=== PATIENT | female | born 2005 | race Caucasian/White ===

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

== ENCOUNTER → 2023-10-04 | Outpatient (CLI) | payer MEDICAID, SELFPAY ==
--- NOTE | 2023-10-04 10:34 | RAD_ITS ---
STUDY: X-RAY - RIGHT HAND, ATTENTION THIRD FINGER REASON FOR EXAM: Female, 18 years old. Right middle finger pain TECHNIQUE: 3 view(s) of the finger were obtained. COMPARISON: None. FINDINGS: Normal metacarpal head. Normal metacarpophalangeal joint. Normal proximal phalanx. Normal middle phalanx. Normal distal phalanx. Normal proximal interphalangeal joint. Normal distal interphalangeal joint. RAD/Finger(s) Min 2 Views IMPRESSION: Normal x-ray examination of the finger. Electronically Signed: Nj Nguyen MD at 11:30 EST ,
== END | disposition home or self-care (01) ==
PROVIDERS: PCP Nurse Practitioner Family; Referring Provider Physician Assistant Surgical; Visit Provider Physician Assistant Surgical
DX: S60.031A Contusion of right middle finger without damage to nail, initial encounter (principal)
CPT/HCPCS: 73140

== ENCOUNTER 2023-12-07 12:31 | Emergency (ER) | payer MEDICAID, SELFPAY ==
[2023-12-07 12:31] VITALS: BP 148/94; PULSE 72; RESP 17; TEMP 36.1; O2SAT 96; BMI 46.9
--- NOTE | 2023-12-07 12:56 | ED.RN ---
denies changes in vision or hearing, headache with sensitivity to light.
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
[2023-12-07 13:47] VITALS: BP 136/104; PULSE 59; RESP 18; TEMP 36.8; O2SAT 96
== END 2023-12-07 13:47 | disposition home or self-care (01) ==
PROVIDERS: Emergency Provider Emergency Medicine; Visit Provider Emergency Medicine
DX: S06.0X1A Concussion with loss of consciousness of 30 minutes or less, initial encounter (principal); W22.03XA Walked into furniture, initial encounter; Y93.89 Activity, other specified
CPT/HCPCS: 99282

== ENCOUNTER → 2024-12-01 | Outpatient (CLI) | payer MEDICAID, SELFPAY ==
--- NOTE | 2024-12-01 12:55 | RAD_ITS ---
PROCEDURE: LUMBAR SPINE 2 OR 3 VIEWS 12/01/2024 REASON FOR EXAM: PAIN TECHNIQUE: AP and lateral views of the lumbar spine were obtained COMPARISON: None. FINDINGS: Fracture/dislocation: None visible. Vertebral body heights: Preserved. Alignment: Unremarkable Disc spaces: Preserved. Facets: Grossly unremarkable. Soft tissues: Unremarkable. Foreign bodies: None visible. Bone mineralization: Grossly unremarkable. Other: None. RAD/Lumbar Spine 2 or 3 Views IMPRESSION: No visible acute displaced fracture or other acute abnormality. If there is pe rsistent concern, consider CT. Reading Location: [id number]
--- NOTE | 2024-12-01 12:55 | RAD_ITS ---
PROCEDURE: HIP, UNI W/ PELVIS 2-3 VIEWS 12/01/2024 REASON FOR EXAM: PAIN TECHNIQUE: An AP view of the pelvis as well as AP views of the RIGHT hip and internal and external rotation were obtained. COMPARISON: None. FINDINGS: Fracture/dislocation: None visible. Joint space(s): Preserved. Soft tissues: Presumed LEFT pelvic phlebolith. Foreign bodies: None visible. Bone mineralization: Unremarkable. Other: None. RAD/HIP, UNI W/ Pelvis 2-3 Views IMPRESSION: 1. No visible acute displaced fracture. 2. Additional description as above. Reading Location: [id number]
--- NOTE | 2024-12-01 12:55 | RAD_ITS ---
PROCEDURE: HAND MIN 3 VIEWS 12/01/2024 REASON FOR EXAM: PAIN TECHNIQUE: Right hand three views COMPARISON: None FINDINGS: There is no fracture or dislocation. Joint spaces are maintained. There is no visible radiopaque foreign body or soft tissue abnormality identified. RAD/Hand Min 3 Views IMPRESSION: There is no fracture or dislocation identified. Reading Location: [id number]
== END | disposition home or self-care (01) ==
LOC: MTRAD 12:53
PROVIDERS: Referring Provider Physician Assistant; Visit Provider Physician Assistant
DX: R52 Pain, unspecified (principal)
CPT/HCPCS: 72100; 73130; 73502

== ENCOUNTER 2025-07-22 07:03 | Emergency (ER) | payer MEDICAID, SELFPAY ==
[2025-07-22 07:04] VITALS: BP 157/84; PULSE 92; RESP 16; TEMP 36.6; O2SAT 100; BMI 38.8
--- NOTE | 2025-07-22 07:28 | CT_ITS ---
PROCEDURE: ABDOMEN/PELVIS W IV CONT ONLY 07/22/2025 REASON FOR EXAM: LUQ PAIN TECHNIQUE: Procedure Code: [id number] Modality: CT Procedure: ABDOMEN/PELVIS W IV CONT ONLY Coronal and Sagittal reconstruction series were provided. CONTRAST: Isovue 370 VOLUME: 90 mL One or more dose reduction techniques were used (e.g., Automated exposure control, adjustment of the mA and/or kV according to patient size, use of iterative reconstruction technique. RADIATION DOSE SUMMARY: CTDlvol: 23.14 mGy DLP: 1309.85 mGycm COMPARISON: None FINDINGS: Lung bases: Unremarkable. Liver: Unremarkable. A focal of fatty interdigitation at the anterior edge of the liver near the ligamentum teres consistent with normal variation. Gallbladder: Unremarkable. No biliary dilation. Spleen: Unremarkable. Pancreas: Unremarkable. Adrenals: Unremarkable. Kidneys: The right kidney is surgically or congenitally absent. The left kidney is unremarkable. No hydronephrosis. No left nephrolithiasis. Bladder: Unremarkable. Reproductive Organs: Unremarkable. Bowel: No bowel wall thickening. No bowel obstruction. Appendix: Normal. Lymph nodes: No lymphadenopathy. Vasculature: No aortic aneurysm. Peritoneum / Retroperitoneum: No free air or free fluid. Bones: No acute bony abnormalities. CT/Abdomen/Pelvis W IV Cont ONLY IMPRESSION: No acute abdominopelvic abnormalities. Reading Location: [facility]
--- NOTE | 2025-07-22 07:30 | EX.ED.DYSGE1 ---
HPI History of Present Illness Chief Complaint: Abd Pain Narrative Narrative: Chief complaint and HPI: 19-year-old female presents for evaluation of left upper quadrant lump. Patient states for the past several days she has been noticing an intermittent lump in her left upper quadrant. She states that she notices it more when she moves. Has intermittent associated pain with it when it is present. Patient does not follow with a primary care physician. She denies any fever, chills, shortness of breath, chest pain, nausea, vomiting, diarrhea, constipation, dysuria, . Review of systems: See HPI Medications: As listed on the chart Allergies: As listed on the chart PFSH: Per chart Vital signs: As listed on the chart. Reviewed. Physical exam: Gen: A&O x3, NAD Head: Normocephalic, atraumatic Eyes: No sclera icterus, conjunctiva clear ENT: Moist mucous membranes Neck: Trachea midline CV: RRR, no murmurs, no peripheral edema Resp: Lungs CTA BL, no w/r/c GI: Abd soft, non-distended, minimally tender in the left upper quadrant without any masses, no r/r/g Musc: Full ROM, no deformity Skin: Warm, dry Neuro: Alert, oriented, grossly intact, sensation intact Psych: Cooperative, appropriate mood and affect PFS PFSH Medical History Strain of right hip Lumbar radiculopathy Lumbar strain De Quervain's tenosynovitis, right Contact with or exposure to other viral diseases Dental caries Acute otitis media, left COVID-19 Acute frontal sinusitis, unspecified Knee pain Medical History no medical history Home Medications ?Medication ?Instructions ?Recorded ?Last Taken ?Type prednisone 10 mg tablet 10 mg PO DAILY #30 tabs 12/01/24 Unknown Rx Allergy/AdvReac Type Severity Reaction Status Date / Time No Known Allergies Allergy Verified 07/22/25 07:07 Family History no significant family his Surgical History no surgical history Social History Smoking Status: Never smoker alcohol intake: never EXAM Physical Exam Const Vital Signs: 07/22/25 07:04 Temperature 98 F Temperature Source Oral Pulse Rate 92 Respiratory Rate 16 Blood Pressure 157/84 H Blood Pressure Mean 108 Pulse Ox 100 Oxygen Delivery Method Room Air MDM MDM MDM Narrative Medical decision making narrative: 19-year-old female presents for evaluation of left upper quadrant lump. Patient states for the past several days she has been noticing an intermittent lump in her left upper quadrant. She states that she notices it more when she moves. Has intermittent associated pain with it when it is present. On presentation, patient no acute distress. See physical exam findings. Differential diagnosis includes but is not limited to hernia, splenomegaly, pancreatitis, gastritis. NS bolus ordered. Labs ordered with CT abdomen pelvis. CBC without leukocytosis. Patient has a mild hemoconcentration of 15.1. Could be seen with dehydration. Platelets unremarkable. CMP unremarkable. Lipase unremarkable. Serum negative. CT abdomen pelvis shows that the right kidney is surgically or congenitally absent. Patient has no history of kidney surgery therefore this is congenitally absent. Otherwise CT abdomen pelvis is unremarkable. At this point in time, no clear etiology to explain patient's left upper quadrant abdominal pain/intermittent lump that she feels. Follow-up with primary care physician. She does not have one therefore we will refer her to one. She was made aware that she has a congenital absent right kidney and that she needs follow-up with the physician for this. She confirmed understanding. Patient able to discharge home. Impression: 1. Left upper quadrant abdominal pain 2. Congenitally absent right kidney Lab Data Labs: Laboratory Results - last 24 hr 07/22/25 07:37 WBC 9.5 RBC 4.97 Hgb 15.1 H Hct 43.8 MCV 88.1 MCH 30.4 MCHC 34.5 RDW Std Deviation 38.6 RDW Coeff of Yasmeen 12.0 Plt Count 256 MPV 9.5 Immature Gran % (Auto) 0.400 Neut % (Auto) 82.5 H Lymph % (Auto) 12.7 L Edwards % (Auto) 3.6 Eos % (Auto) 0.3 Baso % (Auto) 0.5 Absolute Neuts (auto) 7.8 H Absolute Lymphs (auto) 1.21 Nucleated RBC % 0 Sodium 143 Potassium 3.9 Chloride 108 Carbon Dioxide 22.1 Anion Gap 13 BUN 10 Creatinine 0.70 Estim Creat Clear Calc 159.05 Est GFR (MDRD) Non-Af 125 BUN/Creatinine Ratio 14.0 Glucose 106 H Calcium 9.5 Total Bilirubin 0.95 AST 21 ALT 22 Alkaline Phosphatase 66 Total Protein 7.2 Albumin 4.6 Globulin 2.6 Albumin/Globulin Ratio 1.7 Lipase 27 Serum , Qual NEGATIVE Radiography Diagnostic Testing: Clinical Impression(s) from Imaging Studies Abdomen/Pelvis CT 07/22/25 07:28 IMPRESSION: No acute abdominopelvic abnormalities. Reading Location: [facility] Discharge Plan Triage Chief Complaint: Abd Pain Other Complaint: Chest Pain ED Provider: Herbert Rob Dx/Rx/DC Orders Prescriptions: No Action prednisone 10 mg tablet 10 mg PO DAILY Qty: 30 0RF Rx Instructions: 4 tablets daily x3 days, then 3 tablets daily x3 days, then 2 tablets daily x3 days, then 1 tablet daily x3 days Primary Care Provider: Care Physician,No Primary Referrals: Care Physician,No Primary [Primary Care Provider, Medical] Print Language: Romansh
--- OUTSIDE RECORDS SUMMARY | 2025-07-22 07:33 | XMS RPT_ITS | CCD ---
Author Organization [facility] Inform ion Partnership [facility] Care Team Providers Care Security Alarm Installer Name Role Phone [place] RESIDENT HALL DIRECTOR, RESIDENT HALL DIRECTOR-C [place] Primary Care Provider [place] RESIDENT HALL DIRECTOR, RESIDENT HALL DIRECTOR-C [place] Referring Provider [phone] ULISSES Floyd Attending Provider Care Physician, No Primary Referring Unava ilSumit Jones Attending Unavailable Care Physician, No Primary Primary Care Unava ilable Care Physician, No Primary Referring Unava ilSumit Jones Attending Unavailable Care Physician, No Primary Primary Care Unava ilSumit Jones Attending Unavailable Sumit Joyner Referring Unavailable Care Physician, No Primary Primary Care Unava ilable Care Physician, No Primary Primary Care Unava ilable Care Physician, No Primary Referring Sumit Landrum Attending Unavailable Medications Current Medications Medication Drug Class(es) Dates Sig (Normalized) Sig (Original) [place] (Nk) (1 source) Start: 12-07-2023 [place] (Nk) A ctive December 07, 2023 12:00am Completed/Discontinued Medications Medication Drug Class(es) Dates Sig (Normalized) Sig (Original) acetaminophen 500 mg oral tablet (2 sources) Start: 11-29-2022 End: 12-07-2023 take 1 tablet by mouth every six hours Acetaminophen (Tylenol Extra Strength) 500 mg tablet Discontinued 500 MG PO EVERY 6 HOURS November 29, 2022 12:00am December 07, 2023 11:55am amoxicillin 500 mg oral capsule (6 sources) Penicillin-class Antibacterial Start: 11-29-2022 End: 12-09-2022 take 500 mg by mouth three times daily Amoxicillin Discontinued 500 MG PO THREE TIMES A DAY 30 November 29, 2022 12:00am December 09, 2022 12:15am Start: 12-24-2020 End: 01-03-2021 take 1000 mg by mouth twice daily Amoxicillin Discontinued 1000 MG PO TWICE A DAY 40 December 24, 2020 12:00am January 03, 2021 12:01am Start: 08-25-2019 End: 09-04-2019 take 1000 mg by mouth twice daily Amoxicillin Discontinued 1000 MG PO TWICE A DAY 40 August 25, 2019 1:00am September 04, 2019 1:07am amoxicillin 875 mg / clavulanate 125 mg oral tablet (10 sources) Penicillin-class Antibacterial Start: 11-24-2021 End: 12-16-2021 take 1 tablet by mouth twice daily Amoxicillin-Pot Clavulanate Discontinued 1 TABLET PO TWICE A DAY November 24, 2021 12:00am December 16, 2021 1:16pm Start: 10-25-2021 End: 11-04-2021 take 1 tablet by mouth every twelve hours Amoxicillin-Pot Clavulanate Discontinued 1 TABLET PO Q12H 20 October 25, 2021 12:00am November 04, 2021 12:04am Start: 03-30-2020 End: 04-09-2020 take 1 tablet by mouth every twelve hours Amoxicillin-Pot Clavulanate (Augmentin) 875-125 mg tablet Discontinued 1 TABLET PO Q12H 20 March 30, 2020 12:00am April 09, 2020 12:03am Start: 05-06-2019 End: 05-18-2019 take 1 tablet by mouth every twelve hours Amoxicillin-Pot Clavulanate (Augmentin) 875-125 mg tablet Discontinued 1 TABLET PO Q12H 20 May 06, 2019 12:00am May 18, 2019 12:09am Start: 01-25-2018 End: 02-04-2018 take 1 tablet by mouth every twelve hours Amoxicillin-Pot Clavulanate (Augmentin) 875-125 mg tablet Discontinued 1 TABLET PO Q12H 20 January 25, 2018 12:00am February 04, 2018 12:06am cephalexin 500 mg oral capsule (4 sources) Cephalosporin Antibacterial Start: 10-04-2023 End: 10-14-2023 take 500 mg by mouth every twelve hours Cephalexin Discontinued 500 MG PO Q12H 20 October 04, 2023 1:00am October 14, 2023 1:04am Start: 12-16-2021 End: 12-26-2021 take 500 mg by mouth every twelve hours Cephalexin Discontinued 500 MG PO Q12H 25 05December 16, 2021 12:00am December 26, 2021 12:03am clotrimazole 10 mg/ml topical solution (2 sources) Azole Antifungal Start: 04-23-2020 End: 05-07-2020 apply 4-5 drop(s) topically twice daily Clotrimazole Discontinued 1 APPLIC TOPICAL TWICE A DAY April 23, 2020 12:00am May 07, 2020 12:03am Instill 4 to 5 drops into the affected ear(s) twice daily for 14 days dexamethasone 4 mg oral tablet (2 sources) Corticosteroid Start: 08-11-2021 End: 10-25-2021 take 1 tablet by mouth once daily Dexamethasone (Decadron) 4 mg tablet Discontinued 4 MG PO DAILY August 11, 2021 1:00am October 25, 2021 11:26am Omodctrfz-Bxu-Mo-Ac etaminophen (2 sources) Start: 05-06-2019 End: 08-20-2019 take 1 mL by mouth once Boeoazagn-Uoa-Lm-A cetaminophen Discontinued 30 ML PO ONCE May 06, 2019 12:00am August 20, 2019 2:41pm Start: 05-06-2019 End: 08-20-2019 take 1 mL by mouth once Ejyylgzpf-Yqh-Vj-Acetaminophen Discontin ued 30 ML PO ONCE May 05, 2019 11:00pm August 20, 2019 1:41pm hydrocortisone 10 mg/ml / neomycin 3.5 mg/ml / polymyxin b [id number] unt/ml otic suspension (2 sources) Aminoglycoside Antibacterial, Polymyxin-class Antibacterial, Corticosteroid Start: 03-30-2020 End: 04-09-2020 Ezqaqqea-Legmggdpy-Ja Discontinued 3 DRP OTIC Q4H 10 March 30, 2020 12:00am April 09, 2020 12:03am apply to (cotton) wick; replace wick every 24 hours ibuprofen 200 mg oral capsule (2 sources) Nonsteroidal Anti-inflammatory Drug Start: 05-06-2019 End: 08-20-2019 take 400 mg by mouth every six hours Ibuprofen Discontinued 400 MG PO EVERY 6 HOURS May 06, 2019 12:00am August 20, 2019 2:42pm 12 hr loratadine 5 mg / pseudoephedrine sulfate 120 mg extended release oral tablet (2 sources) alpha-Adrenergic Agonist Start: 07-18-2017 End: 01-25-2018 Loratadine-Pseudoephedr ine (Allergy-Congestion Relief-D) 5-120 mg tablet extended release 12 hr Discontinued 1 TABLET PO 1 to 2 times per day July 18, 2017 1:00am January 25, 2018 11:22am melatonin 3 mg oral capsule (2 sources) Start: 11-29-2022 End: 12-07-2023 take 3 mg by mouth at bedtime Melatonin Discontinued 3 MG PO BEDTIME November 29, 2022 12:00am December 07, 2023 11:55am methylPREDNISolone 4 mg oral tablet (2 sources) Corticosteroid Start: 05-09-2023 End: 12-07-2023 take 1 tablet by mouth once Methylprednisolone (Medrol (Tyron)) 4 mg tablets,dose pack Discontinued 0 PO per package directions May 09, 2023 12:00am December 07, 2023 11:55am PO PER PKG DIR oseltamivir 75 mg oral capsule (2 sources) Neuraminidase Inhibitor Start: 08-20-2019 End: 08-25-2019 take 1 capsule by mouth every twelve hours Oseltamivir (Tamiflu) 75 mg capsule Discontinued 75 MG PO Q12H 10 August 20, 2019 1:00am August 25, 2019 1:08am Problems Problem Classification Problem Date Documented Date Episodic/Chronic Administrative/social admission (2 sources) Special examination status; Translations: [Encounter for examination for participation in sport] 10-07-2019 Episodic Disorders of teeth and jaw (2 sources) Dental caries; Translations: [Dental caries, unspecified] 11-29-2022 Episodic Immunizations and screening for infectious disease (4 sources) Contact with or exposure to other viral diseases; Translations: [Contact with and (suspected) exposure to other viral communicable diseases] 05-09-2023 Episodic Influenza (2 sources) Influenza; Translations: [Influenza due to unidentified influenza virus with other respiratory manifestations] 08-20-2019 Episodic Intracranial injury (1 source) Concussion injury of body structure; Translations: [Concussion] 12-07-2023 Episodic Other ear and sense organ disorders (2 sources) Otitis externa; Translations: [Swimmer's ear, bilateral] 03-30-2020 Episodic Other ear and sense organ disorders (2 sources) Acute infective otitis externa; Translations: [Other infective otitis externa, bilateral] 04-16-2020 Episodic Other injuries and conditions due to external causes (1 source) Injury of head; Translations: [Unspecified injury of head, initial encounter] 12-07-2023 Episodic Other injuries and conditions due to external causes (1 source) Unspecified injury of unspecified hip, initial encounter; Translations: [Unspecified injury of unspecified hip, initial encounter] Onset: 11-26-2024 Episodic Other lower respiratory disease (4 sources) Cough; Translations: [Cough] 05-11-2021 Episodic Other upper respiratory infections (10 sources) Acute frontal sinusitis; Translations: [Acute frontal sinusitis, unspecified] 12-24-2020 Episodic Otitis media and related conditions (6 sources) Acute left otitis media; Translations: [Otitis media, unspecified, left ear] 11-24-2021 Episodic Residual codes; unclassified (1 source) Pain, unspecified; Translations: [Pain, unspecified] Onset: 12-04-2024 Episodic Skin and subcutaneous tissue infections (4 sources) Cellulitis of finger; Translations: [Cellulitis of right finger] 10-04-2023 Episodic Superficial injury; contusion (4 sources) Contusion of right middle finger; Translations: [Contusion of right middle finger without damage to nail, initial encounter] 10-04-2023 Episodic Viral infection (2 sources) Disease caused by 2019-nCoV; Translations: [COVID-19] 08-11-2021 Episodic Results Test Name Value Interpretation Reference Range Facil ity HIP, UNI W/ Pelvis 2-3 Views on 12-01-2024 HIP, UNI W/ Pelvis 2-3 Views [facility] Imaging Services [address] [place], [place] [id number] HIP, UNI W/ Pelvis 2-3 Views MR#: [id number] Acct: [id number] Name: SHANNON HERNANDEZ Rep #: [id number] : 2005 F 19 From: [place] Cee MD PCP: Care Physician,No Primary Status: REG CLI Study: HIP, UNI W/ Pelvis 2-3 Views Date of Exam: Exam# [id number] Ordering Dr: Sumit Joyner PROCEDURE: HIP, UNI W/ PELVIS 2-3 VIEWS 12/01/2024 REASON FOR EXAM: PAIN TECHNIQUE: An AP view of the pelvis as well as AP views of the RIGHT hip and internal and external rotation were obtained. COMPARISON: None. FINDINGS: Fracture/dislocation: None visible. Joint space(s): Preserved. Soft tissues: Presumed LEFT pelvic phlebolith. Foreign bodies: None visible. Bone mineralization: Unremarkable. Other: None. RAD/HIP, UNI W/ Pelvis 2-3 Views IMPRESSION: 1. No visible acute displaced fracture. 2. Additional description as above. Reading Location: [id number] CC: No Primary Care Physician; ULISSES Mendes Foot Tender: Signed Normal [facility] Hand Min 3 Viewson Hand Min 3 Views [facility] Imaging Services [address] [place] [address] Hand Min 3 Views MR#: [id number] Acct: [id number] Name: SHANNON HERNANDEZ Rep #: [id number] : 2005 F 19 From: Ananth Bass MD PCP: Care Physician,No Primary Status: REG CLI Study: Hand Min 3 Views Date of Exam: 12/01/24 Exam# [id number] Ordering Dr: Sumit Joyner PROCEDURE: HAND MIN 3 VIEWS 12/01/2024 REASON FOR EXAM: PAIN TECHNIQUE: Right hand three views COMPARISON: None FINDINGS: There is no fracture or dislocation. Joint spaces are maintained. There is no visible radiopaque foreign body or soft tissue abnormality identified. RAD/Hand Min 3 Views IMPRESSION: There is no fracture or dislocation identified. Reading Location: [id number] CC: No Primary Care Physician; ULISSES Mendes Foot Tender: Signed Normal [facility] Lumbar Spine 2 or 3 Viewson 12-01-2024 Lumbar Spine 2 or 3 Views [facility] Imaging Services [address] [place] [address] Lumbar Spine 2 or 3 Views MR#: [id number] Acct: [id number] Name: SHANNON HERNANDEZ Rep #: [id number] : 2005 F 19 From: [place] Cee MD PCP: Care Physician,No Primary Status: REG CLI Study: Lumbar Spine 2 or 3 Views Date of Exam: Exam# [id number] Ordering Dr: Sumit Joyner PROCEDURE: LUMBAR SPINE 2 OR 3 VIEWS 12/01/2024 REASON FOR EXAM: PAIN TECHNIQUE: AP and lateral views of the lumbar spine were obtained COMPARISON: None. FINDINGS: Fracture/dislocation: None visible. Vertebral body heights: Preserved. Alignment: Unremarkable Disc spaces: Preserved. Facets: Grossly unremarkable. Soft tissues: Unremarkable. Foreign bodies: None visible. Bone mineralization: Grossly unremarkable. Other: None. RAD/Lumbar Spine 2 or 3 Views IMPRESSION: No visible acute displaced fracture or other acute abnormality. If there is persistent concern, consider CT. Reading Location: [facility] CC: No Primary Care Physician; ULISSES Mendes Foot Tender: Signed Normal [facility] Urgent Care Visit Reporton 0 12-01-2024 Urgent Care Visit Report [facility] [address], [address] [place] [address] OFFICE VISIT Date of Service: 12/01/24 MR#: [id number] Acct: [id number] Name: SHANNON HERNANDEZ Rep #: [id number] : 2005 Provider: ULISSES Mendes Age/Sex: 19/F Location: [facility] Status: Signed Intake Vital Signs 06/18/24 09:44 12/01/24 12:35 Height 5 ft 6 in Weight: 244 lb BMI 39.4 BP 126/62 H 130/86 H Blood Pressure Location Rt brachial Position Sitting Sitting Respiration 16 Pulse 81 75 Pulse Source Monitor Temp 97.6 F L 98.2 F Temp Source Oral Oral Pulse Oximetry (%) 98 98 Oxygen Delivery Method room air room air Intake Visit Reasons: RIGHT HAND, RIGHT HIP INJURY Accompanied by: Self Is patient in pain?: Yes Pain scale (1-10): 6 Allergies No Known Allergies Allergy (Verified 12/01/24 12:39) Medications ???Medication ???Instructions ???Recorded ???Confirmed ???Type prednisone 10 mg tablet 10 mg PO DAILY #30 tabs 12/01/24 0 12/01/24 Rx Nurse's Note: Patient has Right hip and right hand pain. Patient states she hurt her right hip on Easter. Patient states she was running on gravel with sandals and she heard a catch and pop and instant pain. Patient states since then she still feels the pop and catch. Patient right hand is bothering her for the last week and half. 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 [facility] Medical History (Updated 12/01/24 @ 13:40 by Sumit GTZ, PA) Strain of right hip Lumbar radiculopathy Lumbar strain De Quervain's tenosynovitis, right Contact with or exposure to other viral diseases Dental caries Acute otitis media, left COVID-19 Acute frontal sinusitis, unspecified Knee pain Social History Smoking Status: Never smoker alcohol intake: never HPI HPI Details: SHANNON HERNANDEZ, is a 19 F who presents to the office today for 2 issues: 1. 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 PMH NC. Ketxd-ypyz-ovlgzvyt. No rgyj-fpw-fohogwc products taken to assist. No other complaints at this time. Patient notes approximately week ago while participating in an adult [employer], while running she twisted/torqued her low back and right hip. No caudal complaints though radicular complaints to the right lateral thigh appreciated. Pain to all affected is aggravated touch with range of motion, alleviated minimally with sit/rest. PMH NC. No other associated symptoms and no other alleviating/aggravatin g factors. ROS Const Constitutional: No other (As above) Exam Const General: cooperative, healthy appearing and no acute distress Orientation: alert and awake Resp Effort Inspection: normal respiratory effort and able to speak in complete sentences Cardio Rate: regular rate Pulses: radial pulses present Musc Thoracic/Lumbar Spine: thoracic and lumbar spine normal to inspection, paraspinal tenderness on the right in the mid lumbar and in the lower lumbar, thoraco-lumbar ROM limited with forward flexion, with lateral flexion to the right and with rotation to the right, no thoracic spinal tenderness, no lumbar spinal tenderness and straight leg raise positive (Right lower extremity with positive braggart's) Skin General: no rashes or lesions noted Neuro General: patient alert and patient awake Cognition: normal cognition Speech: speech normal Extrem General: full ROM, capillary refill normal and normal exam except as noted (Right hand/wrist: Positive Edie, with guarded thumb education reviewer strength) Psych Appearance: grossly normal Mental Status: mental status grossly normal Mood: congruent mood Affect: normal affect Speech and Movement: speech and movement normal Attitude: cooperative Thought Process: normal Thought Content: normal Judgment: judgment good Coding Level of Care Code Off vis,est,level 4 Diagnoses De Quervain's tenosynovitis, right M65.4 Lumbar strain S39.012A Lumbar radiculopathy M54.16 Strain of right hip S76.011A Assessment and Plan Assessment and Plan (1) De Quervain's tenosynovitis, right: Status: Acute (2) Lumbar strain: Status: Acute (3) Lumbar radiculopathy: Status: Acute (4) Strain of right hip: Status: Acute Plan: Lumbar, right hip/pelvic, and right hand radiographs all revealed no acute osseous pathology per my review, with radiologist interpretation pending at time patient discharge. Prednisone as prescribed today. Supportive measures as instructed today. Right hand thumb spica wrist splint as dispensed/applied/inst ructed today. Home range of motion exercises as instructed today. Follow-up with PCP or orthopedics in 5 to 7 days should symptoms not (more content not included)... Normal [facility] Urgent Care Visit Reporton 0 11-26-2024 Urgent Care Visit Report [facility] [address], [address] [place] [address] OFFICE VISIT Date of Service: 11/26/24 MR#: [id number] Acct: [id number] Name: SHANNON HERNANDEZ Rep #: [id number] : 2005 Provider: ULISSES Mendes Age/Sex: 19/F Location: [facility] Status: Signed Intake Vital Signs 06/18/24 09:44 Height 5 ft 6 in Weight: 244 lb BMI 39.4 BP 126/62 H Blood Pressure Location Rt brachial Position Sitting Respiration 16 Pulse 81 Pulse Source Monitor Temp 97.6 F L Temp Source Oral Pulse Oximetry (%) 98 Oxygen Delivery Method room air Intake Visit Reasons: R HIP PAIN/INJURY Chief Complaint: HEAD COLD Allergies No Known Allergies Allergy (Verified 06/18/24 09:45) PFSH Medical History Contact with or exposure to other viral diseases Dental caries Acute otitis media, left COVID-19 Acute frontal sinusitis, unspecified Knee pain Social History Smoking Status: Never smoker alcohol intake: never HPI HPI Chief Complaint: HEAD COLD Details: HSANNON HERNANDEZ, is a 19 F who presents to the office today for PATIEN T LEFT BEFORE EVALUATION Coding Level of Care Code No Charge Assessment and Plan Assessment and Plan Orders: Orders HIP, UNI W/ Pelvis 2-3 Views Today S79.919A - Unspecified injury of unspecified hip, initial encounter 11/26/24 1120 Date Sumit Burns Signature: Date (if applicable) CC: Normal [facility] Urgent Care Visit Reporton 1 08-18-2023 Urgent Care Visit Report [facility] [address], [address] [place] [address] OFFICE VISIT Date of Service: 06/18/24 MR#: [id number] Acct: [id number] Name: SHANNON HERNANDEZ Rep #: [id number] : 2005 Provider: ULISSES Mendes Age/Sex: 18/F Location: [facility] Status: Signed Intake Vital Signs 12/07/23 12:31 06/18/24 09:44 Height 5 ft 6 in 5 ft 6 in Weight: 244 lb BMI 39.4 BP 126/62 H Blood Pressure Location Rt brachial Position Sitting Respiration 16 Pulse 81 Pulse Source Monitor Temp 97.6 F L Temp Source Oral Pulse Oximetry (%) 98 Oxygen Delivery Method room air Intake Visit Reasons: HEAD COLD 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 pt did at home covid test. pt declined testing for covid and flu today PFSH Medical History Contact with or exposure to other viral diseases Dental caries Acute otitis media, left COVID-19 Acute frontal sinusitis, unspecified Knee pain Social History Smoking Status: Never smoker alcohol intake: never HPI HPI Chief Complaint: HEAD COLD Details: SHANNON HERNANDEZ, is a 18 F who presents to the office today for 5-day history of low-grade fever, sneezing, nasal congestion with clear rhinorrhea, and occasional cough. No complaints of chills or sweats or rash or chest pressure with shortness of breath and dyspnea on exertion. No tlkz-whd-eyapjjk products taken to assist. Home COVID-19 test last evening was negative; declining all POC screening today. No other associated symptoms and no other alleviating/aggravatin g factors. ROS Const Constitutional: No other (As above) Exam Const General: cooperative, healthy appearing and no acute distress Orientation: alert, awake and oriented x3 HENPA Head: normal to inspection Ears: hearing grossly normal bilaterally, external ears normal, TM's normal bilaterally and EAC's normal Nose: external nose normal, nares normal, septum normal and clear nasal discharge Face and sinus: normal facial exam, sinuses nontender and face symmetric Mouth: oral mucosae normal, lip normal, tongue normal and oropharynx normal Throat: posterior oropharynx normal, tonsils normal, uvula midline and no postnasal drainage Eyes General: appearance normal, both eyes and all related structures Neck Neck: normal visual inspection, full ROM, no lymphadenopathy, no meningeal signs and supple Neck mass: No Thyroid: thyroid normal Lymphatic: no lymphadenopathy noted Chest Chest palpation inspection: normal inspection of the chest Resp Effort Inspection: normal respiratory effort, able to speak in complete sentences and cough Quality of cough: wet (nonproductive in office today) Auscultation: Bilateral: Clear to Auscultation Cardio Palpation: normal PMI Rate: Regular Rhythm: regular rhythm Heart Sounds: S1 normal, S2 normal, no gallops, no murmurs and no rubs Pulses: radial pulses present Skin General: no rashes or lesions noted Neuro General: patient alert, patient awake and patient oriented x3 Cognition: normal cognition Speech: speech normal Psych Appearance: grossly normal Mental Status: mental status grossly normal Mood: congruent mood Affect: normal affect Speech and Movement: speech and movement normal Attitude: cooperative Diagnoses URI (upper respiratory infection) J06.9 Assessment and Plan Assessment and Plan (1) URI (upper respiratory infection): Status: Acute Plan: Medrol and Benzonatate as prescribed today. Supportive measures as instructed today. Follow-up with PCP in 5 to 7 days should symptoms not improve, ED sooner should symptoms worsen or any other concerns develop. Pt states acknowledging understanding all the above Coding Level of Care Code Off vis,est,level 3 Assessment and Plan Assessment and Plan Medications: New methylprednisolone (Medrol (Tyron)) PO PER PKG DIR 21 tabs 0RF benzonatate 200 mg PO TID PRN 20 caps 0RF cough 06/18/24 0958 Date Sumit Burns Signature: Date (if applicable) CC: Normal [facility] Vital Signs Date Time Vital Sign Value Performing Clinician [employer] 12-07-2023 13:47-0400 Body temperature 98.2 [degF] RESIDENT HALL DIRECTOR-C [place] Echavarria RESIDENT HALL DIRECTOR [facility] 12-07-2023 13:47-0400 Diastolic blood pressure 104 mm[Hg] RESIDENT HALL DIRECTOR-C [place] Wittder RESIDENT HALL DIRECTOR [facility] 12-07-2023 13:47-0400 Heart rate 59 /min RESIDENT HALL DIRECTOR-C [place] Wittder RESIDENT HALL DIRECTOR [facility] 12-07-2023 13:47-0400 Respiratory rate 18 /min RESIDENT HALL DIRECTOR-C [place] Echavarria RESIDENT HALL DIRECTOR [facility] 12-07-2023 13:47-0400 SaO2% (BldA) [Mass fraction] 96 % RESIDENT HALL DIRECTOR-C [place] Wittder [facility] 12-07-2023 13:47-0400 Systolic blood pressure 136 mm[Hg] RESIDENT HALL DIRECTOR-C [place] Echavarria [facility] 12-07-2023 12:31-0400 Body height 167.64 cm RESIDENT HALL DIRECTOR-C [place] Wittder RESIDENT HALL DIRECTOR [facility] 12-07-2023 12:31-0400 Body mass index (BMI) [Ratio] 46.9 kg/m2 RESIDENT HALL DIRECTOR-C [place] Wittder [facility] 12-07-2023 12:31-0400 Body weight 131.95 kg RESIDENT HALL DIRECTOR-C [place] Echavarria RESIDENT HALL DIRECTOR [facility] 10-04-2023 10:22-0500 Body temperature 98.3 [degF] RESIDENT HALL DIRECTOR-C [place] Wittder RESIDENT HALL DIRECTOR Work Phone: [facility] 10-04-2023 10:22-0500 Diastolic blood pressure 82 mm[Hg] RESIDENT HALL DIRECTOR-C Montana Wittder RESIDENT HALL DIRECTOR Work Phone: [facility] 10-04-2023 10:22-0500 Heart rate 88 /min RESIDENT HALL DIRECTOR-C Montana Echavarria RESIDENT HALL DIRECTOR Work Phone: [facility] 10-04-2023 10:22-0500 Respiratory rate 12 /min RESIDENT HALL DIRECTOR-C [place] Echavarria RESIDENT HALL DIRECTOR Work Phone: [facility] 10-04-2023 10:22-0500 SaO2% (BldA) [Mass fraction] 98 % RESIDENT HALL DIRECTOR-C [place] Echavarria RESIDENT HALL DIRECTOR Work Phone: [facility] 10-04-2023 10:22-0500 Systolic blood pressure 124 mm[Hg] RESIDENT HALL DIRECTOR-C [place] Echavarria RESIDENT HALL DIRECTOR Work Phone: [facility] Encounters Encounter Date Encounter Type Care Provider Facility Start: 12-01-2024 End: 12-01-2024 ambulatory No Primary Care Physician Facility:[facility] Start: 12-01-2024 End: 12-01-2024 ambulatory Sumit Joyner Facility:[facility] Start: 11-26-2024 End: 11-26-2024 ambulatory No Primary Care Physician Facility:[facility] Start: 06-18-2024 End: 06-18-2024 ambulatory No Primary Care Physician Facility:[facility] Start: 12-07-2023 End: 12-07-2023 Emergency department patient visit RESIDENT HALL DIRECTOR-C Montana Echavarria RESIDENT HALL DIRECTOR [facility] Work Phone: Start: 10-04-2023 End: 10-04-2023 ambulatory RESIDENT HALL DIRECTOR-C Montana Echavarria RESIDENT HALL DIRECTOR Work Phone: [facility] Work Phone: Start: 10-04-2023 End: 10-04-2023 Patient encounter procedure RESIDENT HALL DIRECTOR-C [place] Echavarria RESIDENT HALL DIRECTOR Work Phone: [facility] Work Phone: Procedures Date Procedure Procedure Detail Performing Clinician Start: 10-04-2023 Diagnostic radiograp hy of finger RESIDENT HALL DIRECTOR-C [place] Echavarria RESIDENT HALL DIRECTOR Work Phone: Plan of Treatment Date Care Activity Detail Author Start: 12-07-2023 [facility] Patient Education Concussion [facility] Work Phone: Patient referral [facility] Work Phone: Payers Date Payer Category Payer Medicaid [id number] 2024 Self-pay [id number] 2014 Unknown ANTHEM [id number] Unknown [employer] [id number] Unknown [id number] Unknown [facility] [id number] 93e [id number] Unknown [id number] 2.16.8 [id number] Unknown [id number] 2.16.8 [id number] Unknown [id number] [id number] Unknown [id number] [id number] [id number] Social History Date Type Detail Facility Start: 10-04-2023 End: 12-07-2023 Tobacco smoking status MIIS Unknown if ever smoked [facility] Start: 2005 Sex Assigned At Female W [facility] Evaluation note Note Date & Type Note Facility Evaluation note Diagnosis Onset Date Cellulitis of right middle finger acute Contusion of right middle finger acute [facility] Work Phone: Hospital Discharge instructions Note Date & Type Note Facility Hospital Discharge instructions Additional Instructions Please follow-up with your PCP and return for any worsening of your symptoms. [facility] Work Phone: Chief Complaint and Reason for Visit Chief Complaint SWOLLEN FINGER Right middle finger pain Reason for Visit Cellulitis of right middle finger Contusion of right middle finger Chief Complaint SWOLLEN FINGER Right middle finger pain HEAD INJURY Reason for Visit Cellulitis of right middle finger Contusion of right middle finger Advance Directives No Advanced Directives Records Found Advance Directive Response Recorded Date/ Time Living Will No December 07, 2023 12 :54pm Power of Hide Splitter No December 07, 2023 12:54pm Summary Purpose Family History No Family History Records Found Additional Source Comments Care Teams (unrecognized sec tion and content) Team Status: Active Member Role Status Dates Dr. Anival Menezes MD Family Provider Active [place] Echavarria RESIDENT HALL DIRECTOR, RESIDENT HALL DIRECTOR-C Primary Care Provider Active Team Status: Inactive Member Role Status Dates [place] Echavarria RESIDENT HALL DIRECTOR, RESIDENT HALL DIRECTOR-C Primary Care Provider, Referring P rovider Active Aidan GTZ, PA Attending Provider Active Team Status: Inactive Member Role Status Dates [place] Echavarria RESIDENT HALL DIRECTOR, RESIDENT HALL DIRECTOR-C Primary Care Provider Active ULISSES Hinds Attending Provider, Referring Provi perfecto Active Team Status: Active Member Role Status Dates Dr. Anival Menezes MD Family Provider Active No Primary Care Physician Primary Care Provider Active Team Status: Inactive Member Role Status Dates Dr. Eugenio Winston , DO Emergency Provider Active No Primary Care Physician Primary Care Provider Active Goals (unrecognized section and content) Goals may be documented in a n alternate sectionGoals may be documented in an alternate section INFORMATION SOURCE (unrecogn ized section and content) DATE CREATED AUTHOR 12/09/2024 [facility] FOR RECORDS PERTAINING TO PATIENTS WHO ARE OR HAVE BEEN ENROLLED IN A CHEMICAL DEPENDENCY/SUBSTANCEABUSE PROGRAM, SOME INFORMATION MAY BE OMITTED. This clinical summary was aggregated from multiple sources. Caution should be exercised in using it in the provision of clinical care. This summary normalizes information from multiple sources, and as a consequence, information in this document may materially change the coding, format and clinical context of patient data. In addition, data may be omitted in some cases. CLINICAL DECISIONS SHOULD BE BASED ON THE PRIMARY CLINICAL RECORDS. [employer] [facility]. provides no warranty or guarantee of the accuracy or completeness of information in this document.
[2025-07-22 07:42] LABS: Hematocrit 43.8 % (37-47); Hemoglobin 15.1 g/dL (12.0-15.0); Immature Granulocytes Count 0.040 X10^3/uL (0.0-0.0); Mean Corp Hgb Conc 34.5 g/dL (32-36); Mean Corpuscular Volume 88.1 fL (81-99); Mean Platelet Vol. 9.5 fl (6.2-12.0); NRBC Flagged by Analyzer 0 % (0-5); Platelet Count 256 K/mm3 (150-450); RBC Distribution Width CV 12.0 % (11.6-14.6); RBC Distribution Width SD 38.6 fl (35.1-43.9); Red Blood Count 4.97 M/mm3 (4.2-5.4); White Blood Count 9.5 K/mm3 (4.4-11.0)
[2025-07-22] MEDS: 0.9% Normal Saline (1000mL) 1,000 ML 999 ML IV (07:44)
[2025-07-22 07:56] LABS: Internal QC Validated? YES +Cl - CLEAR BKGD; Pregnancy, Serum, hCG Quali. NEGATIVE Negative
[2025-07-22 08:07] LABS: AST(SGOT) 21 U/L (<=31); Alanine Aminotransfer ALT/SGPT 22 U/L (<=34); Albumin, Serum 4.6 g/dL (3.5-5.0); Alkaline Phosphatase 66 U/L (35-104); Anion Gap 13 (5-15); BUN 10 mg/dL (4-19); BUN/Creat Ratio 14.0 RATIO (10-20); Calcium,Total 9.5 mg/dL (7.6-11.0); Carbon Dioxide 22.1 mmol/L (21.0-32.0); Chloride 108 mmol/L (98-108); Estimated Creatinine Clearance 159.05 ml/min (50-250); Globulin 2.6 g/dL (2.2-4.2); Glucose 106 mg/dL (70-99); Lipase 27 U/L (13-75); Potassium 3.9 mmol/L (3.3-5.1)
[2025-07-22 09:18] VITALS: BP 129/78; PULSE 78; RESP 18; TEMP 36.6; O2SAT 99
== END 2025-07-22 09:44 | disposition home or self-care (01) ==
PROVIDERS: Emergency Provider Surgery; Visit Provider Surgery
DX: R10.12 Left upper quadrant pain (principal); R19.02 Left upper quadrant abdominal swelling, mass and lump; Q60.0 Renal agenesis, unilateral; Z86.19 Personal history of other infectious and parasitic diseases
CPT/HCPCS: 74177; 80053; 83690; 84703; 85025; 96360; 99285; Q9967; A4216

== ENCOUNTER → 2025-07-24 | Outpatient (CLI) | payer MEDICAID, SELFPAY ==
--- NOTE | 2025-07-24 11:27 | RAD_ITS ---
EXAM: XR Left Ribs and AP Chest, 3 or More Views CLINICAL INDICATION: LUQ PAIN TECHNIQUE: Frontal and oblique views of the left ribs and frontal view of the chest. COMPARISON: No relevant prior studies available. FINDINGS: LUNGS AND PLEURAL SPACES: Unremarkable. No consolidation. No pneumothorax. HEART: Unremarkable. No cardiomegaly. MEDIASTINUM: Unremarkable. Normal mediastinal contour. BONES/JOINTS: Unremarkable. No displaced rib fracture. RAD/Ribs Uni Min 3V w/PA Chest IMPRESSION: No displaced rib fracture. Reading [facility]
[2025-07-24 13:03] LABS: Microalbumin,Random Urine 18.1 mg/L (<20 mg/L)
== END | disposition home or self-care (01) ==
PROVIDERS: PCP Nurse Practitioner Family; Referring Provider Nurse Practitioner Family; Visit Provider Nurse Practitioner Family
DX: R73.09 Other abnormal glucose (principal); Z90.5 Acquired absence of kidney; R10.12 Left upper quadrant pain
CPT/HCPCS: 36415; 71101; 82043; 83036

== ENCOUNTER → 2025-07-28 | Outpatient (CLI) | payer MEDICAID, SELFPAY ==
--- OUTSIDE RECORDS SUMMARY | 2025-07-28 07:23 | XMS RPT_ITS | CCD ---
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 Name Role Phone [place] AUTO HEADLIGHT MECHANIC, AUTO HEADLIGHT MECHANIC-C [place] Primary Care Provider [place] AUTO HEADLIGHT MECHANIC, AUTO HEADLIGHT MECHANIC-C [place] Referring Provider [phone] ULISSES Floyd Attending Provider [phone] Care Physician, No Primary Referring Unava ilSumit [...] Drug Class(es) Dates Sig (Normalized) Sig (Original) [place] (Nk) (1 source) Start: 12-07-2023 [place] (Nk) A ctive December 07, 2023 12:00am [...] 11, 2021 1:00am October 25, 2021 11:26am Lqnrxrfyu-Sfm-Zs-Ac etaminophen (2 sources) Start: 05-06-2019 End: 08-20-2019 take 1 mL by mouth once Ckqbxtngu-Dxj-Zx-A cetaminophen Discontinued 30 ML PO ONCE May 06, 2019 12:00am August 20, 2019 2:41pm Start: 05-06-2019 End: 08-20-2019 take 1 mL by mouth once Wjlvjrmus-Jgr-Gq-Acetaminophen Discontin ued 30 ML PO ONCE May 05, 2019 11:00pm August 20, 2019 1:41pm hydrocortisone 10 mg/ml / neomycin 3.5 mg/ml / polymyxin b 06080 unt/ml otic suspension (2 sources) Aminoglycoside Antibacterial, Polymyxin-class Antibacterial, Corticosteroid Start: 03-30-2020 End: 04-09-2020 Yrlgllwx-Zfmmfrejj-Te Discontinued 3 DRP OTIC Q4H 10 March [...] 12-01-2024 HIP, UNI W/ Pelvis 2-3 Views [facility] Imaging Services [address], [place] [id number] HIP, UNI W/ Pelvis 2-3 Views MR#: [id number] Acct: [id number] Name: SHANNON HERNANDEZ Rep #: [id number] : 2005 F 19 From: [place] Cee MD PCP: Care Physician,No Primary Status: REG CLI Study: HIP, UNI W/ Pelvis 2-3 Views Date of Exam: Exam# [id number] Ordering Dr: Sumit Joyner PROCEDURE: HIP, UNI [...] 2. Additional description as above. Reading Location: [id number] CC: No Primary Care Physician; ULISSES Mendes Manager Process Improvement: Signed Normal [facility] Hand Min 3 Viewson Hand Min 3 Views [facility] Imaging Services [address] [place] [address] Hand Min 3 Views MR#: [id number] Acct: [id number] Name: SHANNON HERNANDEZ Rep #: [id number] : 2005 F 19 From: Ananth Bass MD PCP: Care Physician,No Primary Status: REG CLI Study: Hand Min 3 Views Date of Exam: 12/01/24 Exam# [id number] Ordering Dr: Sumit Joyner PROCEDURE: HAND MIN [...] CC: No Primary Care Physician; ULISSES Mendes Manager Process Improvement: Signed Normal [facility] Lumbar Spine 2 or 3 Viewson 12-01-2024 Lumbar Spine 2 or 3 Views [facility] Imaging Services [address] [place] [address] Lumbar Spine 2 or 3 Views MR#: [id number] Acct: [id number] Name: SHANNON HERNANDEZ Rep #: [id number] : 2005 F 19 From: [place] Cee MD PCP: Care Physician,No Primary Status: REG CLI Study: Lumbar Spine 2 or 3 Views Date of Exam: Exam# [id number] Ordering Dr: Sumit Joyner PROCEDURE: LUMBAR SPINE [...] is persistent concern, consider CT. Reading Location: [facility] CC: No Primary Care Physician; ULISSES Mendes Manager Process Improvement: Signed Normal [facility] Urgent Care Visit Reporton 0 12-01-2024 Urgent Care Visit Report [facility] [address], [address] [place] [address] OFFICE VISIT Date of Service: 12/01/24 MR#: [id number] Acct: [id number] Name: SHANNON HERNANDEZ Rep #: [id number] : 2005 Provider: ULISSES Mendes Age/Sex: 19/F Location: [facility] Status: Signed Intake Vital Signs 06/18/24 09:44 [...] last week and half. 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 PMH [place]. Yncqp-bleb-oluoscqm. No ykdj-qjo-sjaikzp products taken to assist. No other complaints at this time. 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 Normal [facility] Urgent Care Visit Reporton 0 11-26-2024 Urgent Care Visit Report [facility] [address], [address] [place] [address] OFFICE VISIT Date of Service: 11/26/24 MR#: [id number] Acct: [id number] Name: SHANNON HERNANDEZ Rep #: [id number] : 2005 Provider: ULISSES Mendes Age/Sex: 19/F Location: [facility] Status: Signed Intake Vital Signs 06/18/24 09:44 [...] HEAD COLD Details: SHANNON HERNANDEZ, is a 19 F who presents to the office today for PATIEN T LEFT BEFORE EVALUATION Coding Level of Care Code No Charge Assessment and Plan Assessment and Plan Orders: Orders HIP, UNI W/ Pelvis 2-3 Views Today S79.919A - Unspecified injury of unspecified hip, initial encounter 11/26/24 1120 Date Sumit Burns Signature: Date (if applicable) CC: Normal [facility] Urgent Care Visit Reporton 1 08-18-2023 Urgent Care Visit Report [facility] [address], [address] [place] [address] OFFICE VISIT Date of Service: 06/18/24 MR#: [id number] Acct: [id number] Name: SHANNON HERNANDEZ Rep #: [id number] : 2005 Provider: ULISSES Mendes Age/Sex: 18/F Location: [facility] Status: Signed Intake Vital Signs 12/07/23 12:31 [...] Reasons: HEAD COLD Chief Complaint: HEAD COLD Residential Pest Control 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 No mnep-hvb-ffsoedp products taken to assist. Home COVID-19 test last evening was negative; declining all POC screening today. No other associated symptoms and no other alleviating/aggravatin g factors. ROS Const Constitutional: No other (As above) Exam Const General: cooperative, healthy appearing and no acute distress Orientation: alert, awake and oriented x3 HENNM Head: normal to inspection Ears: hearing grossly [...] Burns Signature: Date (if applicable) CC: Normal [facility] Vital Signs Date Time Vital Sign Value Performing Clinician [employer] 12-07-2023 13:47-0400 Body temperature 98.2 [degF] AUTO HEADLIGHT MECHANIC-C [place] Echavarria AUTO HEADLIGHT MECHANIC [facility] 12-07-2023 13:47-0400 Diastolic blood pressure 104 mm[Hg] AUTO HEADLIGHT MECHANIC-C Montana Wittder AUTO HEADLIGHT MECHANIC [facility] 12-07-2023 13:47-0400 Heart rate 59 /min AUTO HEADLIGHT MECHANIC-C [place] Wittder AUTO HEADLIGHT MECHANIC [facility] 12-07-2023 13:47-0400 Respiratory rate 18 /min AUTO HEADLIGHT MECHANIC-C [place] Echavarria AUTO HEADLIGHT MECHANIC [facility] 12-07-2023 13:47-0400 SaO2% (BldA) [Mass fraction] 96 % AUTO HEADLIGHT MECHANIC-C Montana Wittder [facility] 12-07-2023 13:47-0400 Systolic blood pressure 136 mm[Hg] AUTO HEADLIGHT MECHANIC-C [place] Echavarria [facility] 12-07-2023 12:31-0400 Body height 167.64 cm AUTO HEADLIGHT MECHANIC-C [place] Wittder AUTO HEADLIGHT MECHANIC [facility] 12-07-2023 12:31-0400 Body mass index (BMI) [Ratio] 46.9 kg/m2 AUTO HEADLIGHT MECHANIC-C Montana Wittder [facility] 12-07-2023 12:31-0400 Body weight 131.95 kg AUTO HEADLIGHT MECHANIC-C [place] Echavarria AUTO HEADLIGHT MECHANIC [facility] 10-04-2023 10:22-0500 Body temperature 98.3 [degF] AUTO HEADLIGHT MECHANIC-C Montana Wittder AUTO HEADLIGHT MECHANIC Work Phone: [facility] 10-04-2023 10:22-0500 Diastolic blood pressure 82 mm[Hg] AUTO HEADLIGHT MECHANIC-C Montana Wittder AUTO HEADLIGHT MECHANIC Work Phone: [facility] 10-04-2023 10:22-0500 Heart rate 88 /min AUTO HEADLIGHT MECHANIC-C [place] Echavarria AUTO HEADLIGHT MECHANIC Work Phone: [facility] 10-04-2023 10:22-0500 Respiratory rate 12 /min AUTO HEADLIGHT MECHANIC-C [place] Echavarria AUTO HEADLIGHT MECHANIC Work Phone: [facility] 10-04-2023 10:22-0500 SaO2% (BldA) [Mass fraction] 98 % AUTO HEADLIGHT MECHANIC-C [place] Echavarria AUTO HEADLIGHT MECHANIC Work Phone: [facility] 10-04-2023 10:22-0500 Systolic blood pressure 124 mm[Hg] AUTO HEADLIGHT MECHANIC-C [place] Echavarria AUTO HEADLIGHT MECHANIC Work Phone: [facility] Encounters Encounter Date Encounter Type Care Provider Facility Start: 12-01-2024 End: 12-01-2024 ambulatory No Primary Care Physician Facility:[facility] Start: 12-01-2024 End: 12-01-2024 ambulatory Sumit Joyner Facility:[facility] Start: 11-26-2024 End: 11-26-2024 ambulatory No Primary Care Physician Facility:[facility] Start: 06-18-2024 End: 06-18-2024 ambulatory No Primary Care Physician Facility:[facility] Start: 12-07-2023 End: 12-07-2023 Emergency department patient visit AUTO HEADLIGHT MECHANIC-C [place] Echavarria AUTO HEADLIGHT MECHANIC [facility] Work Phone: Start: 10-04-2023 End: 10-04-2023 ambulatory AUTO HEADLIGHT MECHANIC-C [place] Echavarria AUTO HEADLIGHT MECHANIC Work Phone: [facility] Work Phone: Start: 10-04-2023 End: 10-04-2023 Patient encounter procedure AUTO HEADLIGHT MECHANIC-C [place] Echavarria AUTO HEADLIGHT MECHANIC Work Phone: [facility] Work Phone: Procedures Date Procedure Procedure Detail Performing Clinician Start: 10-04-2023 Diagnostic radiograp hy of finger AUTO HEADLIGHT MECHANIC-C [place] Echavarria AUTO HEADLIGHT MECHANIC Work Phone: Plan of Treatment Date Care Activity Detail Author Start: 12-07-2023 [facility] Patient Education Concussion [facility] Work Phone: Patient referral [facility] Work Phone: Payers Date Payer Category Payer Medicaid [id number] 2024 Self-pay [id number] 2014 Unknown ANTHEM [id number] Unknown [employer] [id number] Unknown [id number] Unknown [facility] [id number] Unknown [id number] 2.16.8 [id number] Unknown [id number] 2.16.8 [id number] Unknown [id number] 2.16.8 [id number] Unknown [id number] 2.16.8 [id number] Social History Date Type Detail Facility Start: 10-04-2023 End: 12-07-2023 Tobacco smoking status HIIS Unknown if ever smoked [facility] Start: 2005 Sex Assigned At Female [facility] Evaluation note Note Date & Type Note Facility Evaluation note Diagnosis Onset Date Cellulitis of right middle finger acute Contusion of right middle finger acute [facility] Work Phone: Hospital Discharge instructions Note Date & Type Note Facility Hospital Discharge instructions Additional Instructions Please follow-up with your PCP and return for any worsening of your symptoms. 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 Anival Menezes MD Family Provider Active [place] Echavarria AUTO HEADLIGHT MECHANIC, AUTO HEADLIGHT MECHANIC-C Primary Care Provider Active Team Status: Inactive Member Role Status Dates [place] Echavarria AUTO HEADLIGHT MECHANIC, AUTO HEADLIGHT MECHANIC-C Primary Care Provider, Referring P rovider Active Aidan GTZ, PA Attending Provider Active Team Status: Inactive Member Role Status Dates [place] Echavarria AUTO HEADLIGHT MECHANIC, AUTO HEADLIGHT MECHANIC-C Primary Care Provider Active ULISSES Hinds Attending [...] section and content) DATE CREATED AUTHOR 12/09/2024 [facility] FOR RECORDS PERTAINING TO PATIENTS WHO [...] BE BASED ON THE PRIMARY CLINICAL RECORDS. [facility]. provides no warranty or guarantee of the accuracy or completeness of information in this document.
--- NOTE | 2025-07-28 07:24 | US_ITS ---
PROCEDURE: ABDOMEN LIMITED 07/28/2025 REASON FOR EXAM: LUQ PAIN TECHNIQUE: Procedure Code: USABDL Modality: US Procedure: ABDOMEN LIMITED COMPARISON: CT abdomen pelvis dated 07/22/2025 FINDINGS: Pancreas: Visualized portions are sonographically unremarkable. Kidneys: The left kidney measures 14.3 x 7.1 x 6.9 cm. Renal parenchymal thicknesses and echotextures are preserved. No hydronephrosis. Spleen: Normal in size and echotexture measuring 12.0 x 4.6 x 4.3 cm. Soft tissue: Within the areas of concern, there is no detected sonographic abnormality. US/Abdomen Limited IMPRESSION: Within the areas of concern, there is no detected sonographic abnormality. Reading Location: [facility]
== END | disposition home or self-care (01) ==
LOC: US 07:21
PROVIDERS: PCP Nurse Practitioner Family; Referring Provider Nurse Practitioner Family; Visit Provider Nurse Practitioner Family
DX: R10.12 Left upper quadrant pain (principal)
CPT/HCPCS: 76705